=== PATIENT | female | born 1940 | race American Indian/Alaskan Native ===

== ENCOUNTER 2017-04-02 10:09 | Outpatient (CLI) | payer MEDICARE ==
--- NOTE | 2017-04-02 11:49 | Mammography Report ---
Screening mammogram: Partial right mastectomy with radiation therapy for cancer. Routine views are compared to prior study of August 2015. The left breast pattern is heterogeneous with no suspicious findings or interval change. There are surgical changes in the upper outer right breast with scar retraction and surgical clips. There is skin thickening of the inferior and medial breast. In the periphery of the scar there is a focal nodular tissue which is not apparent on her prior study. With this exception the findings otherwise are unchanged. CAD used. Impression: Interval development of focal nodule at right breast scar. Recommendation: Compression imaging of the right breast and ultrasound. BI-RADS CATEGORY: 0 = Needs additional imaging evaluation ACR BI-RADS MAMMOGRAPHIC CODES: 0 = Needs additional imaging evaluation; 1 = Negative; 2 = Benign; 3 = Probably benign; 4 = Suspicious; 5 = Malignant; 6 = Known biopsy-proven malignancy COMMENT: 1. Dense breast tissue, i.e., adenosis, fibrocystic changes, etc., may obscure an underlying neoplasm. 2. Approximately 10% of cancers are not detected with mammography. 3. A negative mammography report should not delay biopsy if a clinically suspicious mass is present.
== END 2017-04-02 10:10 | disposition home or self-care (01) ==
LOC: SPVWC 10:09
PROVIDERS: ATTEND Internal Medicine Hematology & Oncology
DX: Z12.31 Encounter for screening mammogram for malignant neoplasm of breast (principal); Z90.11 Acquired absence of right breast and nipple
CPT/HCPCS: 77067; G0202